=== PATIENT | female | born 1980 | race Hispanic/Latino ===

== ENCOUNTER 2018-11-14 05:33 | Inpatient (IN) | payer MEDICAID ==
[2018-11-14] MEDS ORDERED: REGLAN IV ONE (06:17)
[2018-11-14] MEDS ORDERED: PEPCID IV ONE (06:17)
[2018-11-14] MEDS ORDERED: BICITRA PO ONE (06:17)
[2018-11-14 06:44] LABS: Hematocrit 29.9 % (30.3-42.9); Hemoglobin 9.9 gm/dl (10.1-14.3); Mean Corpuscular HGB Conc 33 % (30-34); Mean Corpuscular Volume 80 fl (79-97); Platelet Count 333 K/mm3 (140-440); Red Blood Count 3.73 M/mm3 (3.65-5.03); Red Cell Distribution Width 15.1 % (13.2-15.2)
[2018-11-14] MEDS ORDERED: LACTATED RINGERS 1,000 ML IV SCH (07:00)
[2018-11-14] MEDS ORDERED: SUBLIMAZE ONE (07:22)
[2018-11-14] MEDS ORDERED: ASTRAMORPH PF 10MG/10ML ONE (07:23)
[2018-11-14] MEDS ORDERED: CLEOCIN 900 MG/50 mL 900 MG/50 ML BAG IV NR (07:30)
[2018-11-14] MEDS ORDERED: PHENERGAN PO PRN (07:45)
[2018-11-14] MEDS ORDERED: ZOFRAN IV PRN (07:45)
[2018-11-14] MEDS ORDERED: PHENERGAN PR PRN (07:45)
[2018-11-14] MEDS ORDERED: NARCAN 0.4 MG/1 ML IV PRN ×2 (07:45→11:30)
--- NOTE | 2018-11-14 07:45 | Anesthesia Consultation ---
Anesthesia Consult and Med Hx - Airway Anesthetic Teeth Evaluation: Good ROM Head & Neck: Adequate Mental/Hyoid Distance: Adequate Mallampati Class: Class II Intubation Access Assessment: Good - Pulmonary Exam CTA: Yes - Cardiac Exam Cardiac Exam: RRR - Pre-Operative Health Status ASA Pre-Surgery Classification: ASA2 Proposed Anesthetic Plan: Spinal - Pulmonary Hx Smoking: No Hx Asthma: No Hx Respiratory Symptoms: No SOB: No COPD: No Home Oxygen Therapy: No Hx Pneumonia: No Hx Sleep Apnea: No - Cardiovascular System Hx Hypertension: No Hx Coronary Artery Disease: No Hx Heart Attack/AMI: No Hx Angina: No Hx Percutaneous Transluminal Coronary Angioplasty (PTCA): No Hx Cardia Arrhythmia: No Hx Pacemaker: No Hx Internal Defibrillator: No Hx Valvular Heart Disease: No Hx Heart Murmur: No Hx Peripheral Vascular Disease: No - Central Nervous System Hx Neuromuscular Disorder: No Hx Seizures: No CVA: No Hx Back Pain: No Hx Psychiatric Problems: Yes (depression) - Gastrointestinal Hx Ulcer: No Hx Gastroesophageal Reflux Disease: Yes - Endocrine Hx Renal Disease: No Hx End Stage Renal Disease: No Hx Cirrhosis: No Hx Liver Disease: No Hx Insulin Dependent Diabetes: No Hx Non-Insulin Dependent Diabetes: No Hx Thyroid Disease: No Hx Hypothyroidism: No Hx Hyperthyroidism: No - Hematic Hx Anemia: No Hx Sickle Cell Disease: No - Other Systems Hx Alcohol Use: No Hx Substance Use: No Hx Cancer: No Hx Obesity: No
--- NOTE | 2018-11-14 07:45 | Anesthesia Day of Surgery ---
Anesthesia Day of Surgery - Day of Surgery Patient Examined: Yes Patient H&P Reviewed: Yes Patient is NPO: Yes Beta Blockers: No Cardiac Clearance: No Pulmonary Clearance: No Asher's Test: N/A
--- NOTE | 2018-11-14 07:53 | History and Physical Report ---
History of Present Illness Date of examination: 11/14/18 Date of admission: 11/14/18 05:33 Chief complaint: I'm here for History of present illness: Pt is a 38 year old who presents at 37+ weeks with EDC 3/ Past History Past Medical History: no pertinent history Past Surgical History: no surgical history Social history: - Obstetrical History Expected Date of Delivery: 12/01/18 Actual Gestation: 37 Week(s) 4 Day(s) : 6 Para: 5 Hx # Term Pregnancies: 5 Number of Living Children: 6 Medications and Allergies Allergies Allergy/AdvReac Type Severity Reaction Status Date / Time cephalexin [From Keflex] Allergy Hives Verified 11/14/18 06:07 Active Meds: Active Medications Lactated Ringer's (Lactated Ringers) 1,000 mls @ 2,250 mls/hr IV PREOP SHONDA Stop: 11/15/18 07:27 Last Admin: 11/14/18 07:00 Dose: 2,250 mls/hr Documented by: Oxytocin/Sodium Chloride (Pitocin/Ns 20 Unit/1000ml Drip) 20 units in 1,000 mls @ 0 mls/hr IV TITR SHONDA Clindamycin HCl (Cleocin 900 Mg/50 Ml) 900 mg in 50 mls @ 100 mls/hr IV ONCE NR; Protocol Stop: 11/14/18 11:00 Fentanyl/Bupivacaine/Sodium Chlor (Fentanyl-Bupiv 2 Mcg/Ml-0.125%) 200 mcg in 100 mls @ 8 mls/hr EPIDURAL TITRATE SHONDA; Protocol Naloxone HCl (Narcan 0.4 Mg/1 Ml) 0.2 mg IV Q2MIN PRN PRN Reason: Res Rate </= 8 or 02 SAT < 92% Ondansetron HCl (Zofran) 4 mg IV Q8H PRN PRN Reason: Nausea And Vomiting Promethazine HCl (Phenergan) 25 mg PO Q6H PRN PRN Reason: Nausea And Vomiting Promethazine HCl (Phenergan) 25 mg TN Q6H PRN PRN Reason: Nausea And Vomiting Sodium Chloride (Sodium Chloride Flush Syringe 10 Ml) 10 ml IV PRN NR Review of Systems All systems: negative Constitutional: fatigue Genitourinary: pelvic pain - Vital Signs Vital signs: Vital Signs Temp Pulse BP 98.3 F 93 H 132/71 11/14/18 06:41 11/14/18 06:41 11/14/18 06:41 Temp Pulse Resp BP Pulse Ox 98.3 F 93 H 132/71 11/14/18 06:41 11/14/18 06:41 11/14/18 06:41 - Physical Exam Cardiovascular: Regular rate, Normal S1, Normal S2 Lungs: Positive: Clear to auscultation, Normal air movement Abdomen: Positive: normal appearance, soft Genitourinary (Female): Positive: normal external genitalia Vulva: both: normal Vagina: Positive: normal moisture Uterus: Positive: enlarged - Obstetrical FHR: auscultation normal Cervical Dilatation: 0 Cervical Effacement Percentage: 50 Uterine Contraction Pattern: Absent Results Result Diagrams: 11/14/18 06:20 Abnormal lab results 11/14/18 Range/Units 06:20 WBC 11.8 H (4.5-11.0) K/mm3 Hgb 9.9 L (10.1-14.3) gm/dl Hct 29.9 L (30.3-42.9) % MCH 27 L (28-32) pg All other labs normal. Assessment and Plan Twin IUP at 37.4 weeks for repeat and bilateral tubal ligation. Admit for surgery. Consents signed and placed on chart.
[2018-11-14] MEDS ORDERED: SODIUM CHLORIDE FLUSH SYRINGE 10 ML IV NR (08:00)
[2018-11-14] MEDS ORDERED: fentaNYL-BUPIV 2 MCG/ML-0.125% 200 MCG/100 ML BAG EPIDURAL SCH (08:00)
[2018-11-14 08:09] LABS: Band Neutrophils # (Manual) 0.4 K/mm3; Eosinophils % (Manual) 0 % (0.0-4.3); Total Cells Counted 100
[2018-11-14 08:10] LABS: Anisocytosis Few; Basophils % (Manual) 0 % (0.0-1.8); Hypochromasia Few
[2018-11-14] MEDS ORDERED: WATER FOR IRRIG STERILE IR ONE (08:15)
[2018-11-14] MEDS ORDERED: NACL 0.9% IR ONE (08:15)
[2018-11-14] MEDS: PITOCin/NS 20 UNIT/1000ML DRIP 20 UNITS/1,000 ML BAG IV SCH ×2 (08:33→10:38)
[2018-11-14] MEDS ORDERED: TORADOL ONE (08:58)
--- NOTE | 2018-11-14 09:23 | Procedure Note ---
OB Delivery Note - Delivery Date of Delivery: 11/14/18 Surgeon: ИРИНА SWIFT Estimated blood loss: other (900cc) - Section Preop diagnosis: repeat , desires sterilization Postop diagnosis: same section procedure: repeat low transverse, bilateral tubal ligation Disposition: PACU Complications: none Narrative: see op report - A at 1 minute: 8 at 5 minutes: 9 Infant Gender: Male (5 pounds 6 ounces) B at 1 minute: 8 at 5 minutes: 9 Infant Gender: Male (5 pounds 12 ounces)
--- NOTE | 2018-11-14 09:43 | Operative Report ---
Operative Report Operative Report: The operative report for patient Adry Munoz Date of service 11/14/2018 Preoperative diagnosis: Twin Intrauterine at 37.4 weeks 2. Previous x one 3. Undesired fertility Postoperative diagnosis: Same Procedure: Repeat low transverse section with BTL Surgeon: Dr. Tonia Munoz EBL: 900 mL Urine output: 100 mL IV fluids: 600 mL Findings: Viable male in the vertex position. Weight 5 lbs. 6 oz. 2433g Apgars 8 and 9. Twin B viable male in the footling breech position, weight 5 lbs. 12 oz., 2618 g. Apgars 8 and 9. Otherwise normal pelvic anatomy Specimens: Portion of right and left fallopian tube Complications: None Procedure: The patient was admitted to the OR with IV running and in place. She was properly identified as herself. She was placed under spinal anesthesia in the OR without difficulty.. She was placed in the dorsal supine position with a leftward tilt. A Velasquez catheter was inserted. She was then prepped and draped in the normal sterile fashion. An Allis test was used to confirm adequ ate anesthesia. Once confirmed, the incision was made with the scalpel and carried to the underlying fascia using the scalpel and the Bovie. The fascia was incised in the midline and incision was extended bilaterally using the curved Law scissors. The fascia was then dissected from the underlying rectus muscles in a series of sharp and blunt dissection using the Law scissors. Muscles were in the in the midline sharply using Metzenbaum scissors and the peritoneum was entered into bluntly using the surgeon's fingers. The Jacinto retractor was placed into the incision to provide visualization. Following this the bladder flap was created. Hysterotomy incision was then made in the scalpel. Upon uterine entry, the amniotic sac was ruptured for clear fluid. The infant was then delivered in the vertex presentation. His mouth and nose were suctioned on the field. The cord was clamped and cut and he was handed to the waiting NICU personnel. The second twin was delivered in the footling breech presentation. His mouth and nose were suctioned on the field the cord was cut and clamped, and he was handed to the waiting NICU personnel. The placenta was delivered manually and taken off the field. The uterus was then exteriorized and cleared of all clots and debris. The hysterotomy incision was then closed in a running locked fashion using 0 Vicryl. Attention was turned to the fallopian tubes. Each tube was ligated in the [place] style tubal ligation. There was excellent hemostasis at the end of this portion of the procedure. The abdomen was then copiously irrigated with warm normal saline. Following this the uterus was replaced into the abdominal cavity. At this point the muscles were reapproximated in the midline using individual sutures of 0 Vicryl. Following this the fascia was closed in a running fashion using 0 Vicryl. Tissue was then copiously irrigated. A retention suture was placed in the subcuticular fat. Skin was closed in a running fashion using 3-0 Monocryl. The sponge lap needle and instrument counts were correct 2. The patient tolerated the procedure well. She was taken to recovery in stable condition.
[2018-11-14] MEDS ORDERED: SODIUM CHLORIDE FLUSH SYRINGE 10 ML IV PRN (11:30)
[2018-11-14] MEDS ORDERED: MORPHINE IV PRN (11:30)
[2018-11-14] MEDS ORDERED: D5LR 1,000 ML IV SCH (11:30)
[2018-11-14] MEDS ORDERED: PITOCin/NS 20 UNIT/1000ML DRIP 20 UNITS/1,000 ML BAG IV SCH (11:30)
[2018-11-14] MEDS ORDERED: LANSINOH TP PRN (12:00)
[2018-11-14] MEDS ORDERED: TUCKS PAD TP PRN (12:00)
[2018-11-14] MEDS ORDERED: TORADOL IV PRN (12:00)
--- NOTE | 2018-11-14 15:37 | Post Anesthesia Evaluation ---
- Post Anesthesia Evaluation Patient Participated: Yes Airway Patent: Yes Stable Respiratory Function: Yes Nausea/Vomiting: No Temp > 96.8F: Yes Pain Manageable: Yes Adequeate Hydration: Yes Anesthesia Complications: No Block Receding Appropriately: Yes Patient on Ventilator: No
[2018-11-14] MEDS ORDERED: NACL 0.9% 1000 ML 1,000 ML IV ONE (16:53)
[2018-11-14 19:56] LABS: Hematocrit 22.3 % (30.3-42.9); Hemoglobin 7.4 gm/dl (10.1-14.3)
[2018-11-14] MEDS: PERCOCET 5/325 PO PRN (21:36)
[2018-11-14] MEDS: IBUPROFEN PO PRN (21:38)
[2018-11-15] MEDS: IBUPROFEN PO PRN ×3 (04:58→17:04)
[2018-11-15] MEDS: MYLICON PO PRN ×3 (04:59→22:10)
[2018-11-15] MEDS: PERCOCET 5/325 PO PRN ×4 (04:59→22:07)
[2018-11-15] MEDS: FEOSOL PO SCH (10:57)
[2018-11-15] MEDS: PRENATAL VITAMIN PO SCH (10:57)
--- NOTE | 2018-11-15 20:02 | Progress Note ---
Assessment and Plan POD 2 s/p ltcs. Doing well. Plan for Discharge on POD 3. continue routine post op care Subjective - Subjective Date of service: 11/15/18 Interval history: Pt is a 38 year old who presents at 37+ weeks with EDC 3/ Patient reports: appetite normal, voiding normally : doing well Objective - Vital Signs Latest vital signs: Vital Signs Temp Pulse Resp BP BP Pulse Ox 11/15/18 17:09 98.3 F 85 20 113/68 97 11/15/18 17:04 18 11/15/18 17:03 18 11/15/18 10:58 18 11/15/18 08:20 97.5 F L 80 18 105/56 98 11/15/18 04:59 16 11/15/18 04:58 16 11/15/18 04:05 97.9 F 71 18 106/63 11/15/18 00:55 98.4 F 72 18 106/59 96 11/14/18 21:38 20 11/14/18 21:36 20 11/14/18 20:45 97.4 F L 84 18 108/62 96 Intake and Output 11/15/18 11/15/18 11/15/18 06:59 14:59 22:59 Intake Total 1080 960 720 Output Total 2000 850 Balance -920 110 720 Intake: Oral 720 240 360 Intake, Free Water 360 720 360 Output: Urine 2000 850 Indwelling Catheter 1200 Void 800 850 Other: Total, Intake Amount 720 240 360 Total, Output Amount 800 450 # Voids Void 1 2 - Exam Breasts: Present: deferred Cardiovascular: Present: Normal S1, Normal S2 Lungs: Present: Clear to auscultation, Normal air movement Abdomen: Present: normal appearance, soft, normal bowel sounds Uterus: Present: normal, firm, fundal height below umbilicus Extremities: Present: normal Incision: Present: normal, dry, intact
[2018-11-16] MEDS: IBUPROFEN PO PRN ×4 (00:07→20:30)
[2018-11-16] MEDS: MILK OF MAGNESIA PO PRN ×2 (00:12→09:39)
[2018-11-16] MEDS: PERCOCET 5/325 PO PRN ×4 (04:43→18:10)
[2018-11-16] MEDS: MYLICON PO PRN ×2 (04:50→21:14)
[2018-11-16] MEDS: PRENATAL VITAMIN PO SCH (09:38)
[2018-11-16] MEDS: FEOSOL PO SCH (09:38)
[2018-11-17] MEDS: PERCOCET 5/325 PO PRN ×2 (00:09→10:56)
[2018-11-17] MEDS: IBUPROFEN PO PRN (04:04)
--- NOTE | 2018-11-17 08:52 | Progress Note ---
Assessment and Plan POD 3 s/p rltcs. Doing well. Plan for discharge on today. Subjective - Subjective Date of service: 11/17/18 Interval history: Pt is a 38 year old who presents at 37+ weeks with EDC 3/ Patient reports: appetite normal, voiding normally, pain well controlled, ambulating normally [place]: doing well Objective - Vital Signs Latest vital signs: Vital Signs Temp Pulse Resp BP Pulse Ox 11/17/18 08:23 98.2 F 83 20 123/71 97 11/17/18 01:23 98.1 F 74 20 103/55 96 11/16/18 17:23 97.6 F 67 18 129/78 98 Intake and Output 11/16/18 11/17/18 11/17/18 22:59 06:59 14:59 Intake Total 960 360 Balance 960 360 Intake: Oral 240 Intake, Free Water 720 360 Other: Total, Intake Amount 240 # Voids Void 3 1 - Exam Cardiovascular: Present: Regular rate, Normal S1, Normal S2 Lungs: Present: Clear to auscultation, Normal air movement Abdomen: Present: normal appearance, soft Vulva: both: normal Uterus: Present: normal, firm Extremities: Present: normal Incision: Present: normal, dry, intact
--- NOTE | 2018-11-17 08:53 | Discharge Summary ---
Providers - Providers Date of Admission: 11/14/18 05:33 Date of discharge: 11/17/18 Attending physician: ИРИНА SWIFT Primary care physician: ИРИНА SWIFT Hospitalization Reason for admission: section Delivery: Procedure: bilateral tubal ligation, repeat low transverse Incision: normal, dry, intact Other procedures: none complications: none Discharge diagnosis: IUP at term delivered [place] baby: twins Condition at discharge: Good Disposition: DC-01 TO HOME OR SELFCARE Plan - Discharge Medications Prescriptions: Docusate Sodium [Colace] 100 mg PO BID #60 capsule Ferrous Sulfate [Feosol 325 MG tab] 325 mg PO BID #60 tablet Ibuprofen [Motrin] 800 mg PO Q8HR PRN #40 tablet PRN Reason: Pain, Moderate (4-6) Oxycodone HCl/Acetaminophen [Percocet 7.5/325 mg] 1 each PO Q6HR PRN #40 tablet PRN Reason: Pain - Provider Discharge Summary Activity: routine, no sex for 6 weeks, no heavy lifting 4 weeks, no strenuous exercise Diet: routine Instructions: routine Additional instructions: [] Smoking cessation referral if applicable(refer to patient education folder for contact #) [] Refer to [facility]'s [facility] Booklet Call your doctor immediately for: * Fever > 100.5 * Heavy vaginal bleeding ( >1 pad per hour) * Severe persistent headache * Shortness of breath * Reddened, hot, painful area to leg or breast * Drainage or odor from incision. * Keep incision clean and dry at all times and follow doctor's instructions regarding bathing/showering - Follow up plan Follow up: ИРИНА SWIFT MD [Primary Care Provider] - 7 Days
[2018-11-17] MEDS: FEOSOL PO SCH (10:55)
[2018-11-17] MEDS: PRENATAL VITAMIN PO SCH (10:56)
[2018-11-17 12:43] VITALS: BP 146/78
== END 2018-11-17 12:35 | disposition home or self-care (01) | DRG 765 ==
LOC: APU 05:33 → OB 11:06
PROVIDERS: ADMIT Obstetrics & Gynecology; ATTEND Obstetrics & Gynecology
PROC: 10D00Z1 Extraction of Products of Conception, Low, Open Approach (ICD-10-PCS; principal; 2018-11-14)
PROC: 0UB70ZZ Excision of Bilateral Fallopian Tubes, Open Approach (ICD-10-PCS; 2018-11-14)
DX: O34.211 Maternal care for low transverse scar from previous cesarean delivery (principal); O30.003 Twin pregnancy, unspecified number of placenta and unspecified number of amniotic sacs, third trimester; O32.8XX2 Maternal care for other malpresentation of fetus, fetus 2; Z3A.37 37 weeks gestation of pregnancy; Z37.2 Twins, both liveborn
CPT/HCPCS: 36415; 85007; 85014; 85018; 85025; 86850; 86900; 86901; 88302; 88305; 96360; 96361; 96374; 96375; G0378; A6250; J1885; J2274; J2590; J2765; J3010; J7030; J7120; J7121